=== PATIENT | female | born 1935 | race Caucasian/White ===

== ENCOUNTER 2016-11-22 16:53 | Inpatient (IN) | payer OTHER ==
[~2016-11-22] VITALS: Ht 149.9 cm; Wt 63.5 kg
[~2016-11-22 16:53] MED LIST: ALDACTONE25 MG PO; APR10 PO; ASPIRIN EC325 M1 PO; ATENOLOL50 MG PO; ATIVAN0.5 M1 PO; ENALAPRIL MALEA20 MG PO; LASIX20 MG PO; LYRICA100 M1 PO; METFORMIN500 M1 PO; NEURONTIN100 MG PO; NEXIUM40 MG PO; NIFEDIAC CC90 MG PO; ZESTRIL20 MG PO
[2016-11-22 17:44] LABS: BASOPHIL % 0.4 % (0-2); PLATELET COUNT 334 x10^3mcL (130-400); RED CELL DISTRIBUTION WIDTH 15.4 % (11.5-14.5)
[2016-11-22 17:53] LABS: CALCIUM 8.6 mg/dL (8.5-10.1); CARBON DIOXIDE 26.5 mmol/L (21-32); CHLORIDE SERUM 104 mmol/L (98-107); CREATININE SERUM 1.1 mg/dL (0.6-1.0); GLUCOSE SERUM 234 mg/dL (74-106); POTASSIUM SERUM 4.8 mmol/L (3.5-5.1); SODIUM SERUM 140 mmol/L (136-145)
[2016-11-22 17:58] LABS: ALBUMIN 3.4 g/dL (3.4-5.0); ALKALINE PHOSPHATASE 70 U/L (46-116); ALT/SGPT 26 U/L (14-59); AST/SGOT 23 U/L (15-37); BILIRUBIN TOTAL 0.42 mg/dL (0.20-1.00); TOTAL PROTEIN, SERUM 6.6 g/dL (6.4-8.2)
[2016-11-22 22:08] LABS: CHOLESTEROL/HDL RATIO 3.1
[2016-11-22 22:12] VITALS: BP 174/71
[2016-11-22 22:17] LABS: FREE T4 1.34 ng/dL (0.76-1.46); FREE THYROXINE INDEX 2.8 ug/dL (1.4-4.5); T3 TOTAL 0.97 ng/mL; T4(THYROXINE) 8.7 ug/dL (4.7-13.3)
[2016-11-22 22:39] VITALS: BP 155/68
[2016-11-23] VITALS (8 sets, daily range): BP systolic 105–167; BP diastolic 45–72; Ht 149.9 cm; Wt 63.5 kg
[2016-11-23 02:43] LABS: UA SPECIFIC GRAVITY <=1.005 (1.005-1.035); microscopic required? YES; urine erythrocyte NEGATIVE (NEGATIVE)
[2016-11-23 06:11] LABS: BASOPHIL % 0.3 % (0-2); PLATELET COUNT 329 x10^3mcL (130-400)
[2016-11-23 06:29] LABS: CALCIUM 8.9 mg/dL (8.5-10.1); CARBON DIOXIDE 30.4 mmol/L (21-32); CHLORIDE SERUM 100 mmol/L (98-107); CREATININE SERUM 1.1 mg/dL (0.6-1.0); GLUCOSE SERUM 115 mg/dL (74-106); MAGNESIUM 1.5 mg/dL (1.8-2.4); PHOSPHOROUS 3.9 mg/dL (2.5-4.9); POTASSIUM SERUM 4.1 mmol/L (3.5-5.1); SODIUM SERUM 140 mmol/L (136-145)
[2016-11-23 06:38] LABS: RED CELL DISTRIBUTION WIDTH 14.6 % (11.5-14.5)
[2016-11-24 06:01] LABS: BASOPHIL % 0.6 % (0-2); PLATELET COUNT 283 x10^3mcL (130-400)
[2016-11-24 06:08] VITALS: BP 141/57
[2016-11-24 06:25] LABS: ALBUMIN 3.4 g/dL (3.4-5.0); CALCIUM 9.1 mg/dL (8.5-10.1); CARBON DIOXIDE 29.5 mmol/L (21-32); CHLORIDE SERUM 100 mmol/L (98-107); CREATININE SERUM 1.2 mg/dL (0.6-1.0); GLUCOSE SERUM 128 mg/dL (74-106); MAGNESIUM 2.2 mg/dL (1.8-2.4); POTASSIUM SERUM 4.1 mmol/L (3.5-5.1); SODIUM SERUM 138 mmol/L (136-145)
[2016-11-24 06:32] LABS: RED CELL DISTRIBUTION WIDTH 14.7 % (11.5-14.5)
[2016-11-24 09:05] VITALS: BP 127/55
[2016-11-24 15:02] VITALS: BP 116/50
[2016-11-24] MEDS ORDERED: LEVAQUIN750 MG PO (15:17)
[2016-11-24] MEDS ORDERED: CLINDAMYCIN HC300 MG PO (15:18)
[2016-11-24] MEDS ORDERED: LAC PO (15:18)
[2016-11-24 15:24] VITALS: BP 116/50
== END 2016-11-24 15:55 | disposition home or self-care (01) | DRG 871 ==
LOC: ED 16:53 → MU 21:22 → DU 21:22 → MU 11-24 06:45
PROVIDERS: Emergency Medicine; ADMIT Family Medicine
DX: A41.9 Sepsis, unspecified organism (principal); J69.0 Pneumonitis due to inhalation of food and vomit; I50.41 Acute combined systolic (congestive) and diastolic (congestive) heart failure; N17.0 Acute kidney failure with tubular necrosis; J96.01 Acute respiratory failure with hypoxia; E87.3 Alkalosis; E11.51 Type 2 diabetes mellitus with diabetic peripheral angiopathy without gangrene; E11.65 Type 2 diabetes mellitus with hyperglycemia; Z79.84 Long term (current) use of oral hypoglycemic drugs; I11.0 Hypertensive heart disease with heart failure; I16.0 Hypertensive urgency; D64.9 Anemia, unspecified; E11.40 Type 2 diabetes mellitus with diabetic neuropathy, unspecified; Z79.4 Long term (current) use of insulin; E83.42 Hypomagnesemia; K21.9 Gastro-esophageal reflux disease without esophagitis
CPT/HCPCS: 36600; 82962; 83880; 84439; J1644; J1940; J1956; J3475; J3490; J7030; J7613; J7620; J7644; Q0092; Q9967

== ENCOUNTER 2016-12-31 04:59 | Inpatient (IN) | payer OTHER ==
[~2016-12-31] VITALS: Ht 160 cm; Wt 68.6 kg
[~2016-12-31 04:59] MED LIST changes: +CLINDAMYCIN HC300 MG PO; +LAC PO; +LEVAQUIN750 MG PO
[2016-12-31 05:53] LABS: RED CELL DISTRIBUTION WIDTH 14.3 % (11.5-14.5)
[2016-12-31 05:56] LABS: PLATELET COUNT 587 x10^3mcL (130-400)
[2016-12-31 06:09] LABS: ALBUMIN 2.7 g/dL (3.4-5.0); ALKALINE PHOSPHATASE 126 U/L (46-116); ALT/SGPT 21 U/L (14-59); AST/SGOT 22 U/L (15-37); BILIRUBIN TOTAL 0.4 mg/dL (0.20-1.00); CALCIUM 8.3 mg/dL (8.5-10.1); CREATININE SERUM 1.6 mg/dL (0.6-1.0); GLUCOSE SERUM 275 mg/dL (74-106); TOTAL PROTEIN, SERUM 6.6 g/dL (6.4-8.2)
[2016-12-31 06:18] LABS: BAND NEUTROPHIL 4 % (0-10); METAMYELOCTE 1 % (0-2); MONOCYTE 3 % (0-7); SEGMENTED NEUTROPHILS 86 % (37-75)
[2016-12-31 06:19] LABS: rbc morphology (normal/abnorm) ABNORMAL (NORMAL); tear drop cell (dacryocyte) 1+
[2016-12-31 06:20] LABS: PLATELET MORPHOLOGY PLATELETS INCREASED
[2016-12-31 06:25] LABS: CHLORIDE SERUM 101 mmol/L (98-107); POTASSIUM SERUM 4.6 mmol/L (3.5-5.1); SODIUM SERUM 139 mmol/L (136-145)
[2016-12-31 09:20] VITALS: BP 156/71
[2016-12-31 11:41] LABS: MAGNESIUM 1.2 mg/dL (1.8-2.4); PHOSPHOROUS 4.8 mg/dL (2.5-4.9)
[2016-12-31 11:44] LABS: CHOLESTEROL/HDL RATIO 3.5
[2016-12-31 11:51] LABS: FREE T4 1.25 ng/dL (0.76-1.46); FREE THYROXINE INDEX 2.8 ug/dL (1.4-4.5)
[2016-12-31 11:53] LABS: T3 TOTAL 0.65 ng/mL
[2016-12-31 13:40] VITALS: BP 181/77
[2016-12-31 15:41] LABS: microscopic required? YES; urine erythrocyte NEGATIVE (NEGATIVE)
[2016-12-31 18:00] VITALS: BP 127/47
[2016-12-31 21:56] VITALS: BP 150/65
[2017-01-01 05:25] VITALS: BP 145/60
[2017-01-01 07:35] LABS: CALCIUM 8.7 mg/dL (8.5-10.1); CARBON DIOXIDE 29.1 mmol/L (21-32); CHLORIDE SERUM 102 mmol/L (98-107); CREATININE SERUM 1.3 mg/dL (0.6-1.0); GLUCOSE SERUM 153 mg/dL (74-106); MAGNESIUM 1.9 mg/dL (1.8-2.4); PHOSPHOROUS 3.8 mg/dL (2.5-4.9); POTASSIUM SERUM 4.4 mmol/L (3.5-5.1); SODIUM SERUM 140 mmol/L (136-145)
[2017-01-01 07:41] LABS: RED CELL DISTRIBUTION WIDTH 13.8 % (11.5-14.5)
[2017-01-01 07:43] LABS: PLATELET COUNT 468 x10^3mcL (130-400)
[2017-01-01 09:24] LABS: BAND NEUTROPHIL 4 % (0-10); BASOPHIL 0 % (0-2); MONOCYTE 5 % (0-7); SEGMENTED NEUTROPHILS 83 % (37-75)
[2017-01-01 09:26] LABS: rbc morphology (normal/abnorm) ABNORMAL (NORMAL)
[2017-01-01 09:29] LABS: ovalocyte/elliptocyte 1+; tear drop cell (dacryocyte) 1+
[2017-01-01 10:27] VITALS: BP 143/62
[2017-01-01 14:23] VITALS: BP 118/50
[2017-01-01 18:00] VITALS: BP 127/78
[2017-01-01 21:48] VITALS: BP 129/47
[2017-01-02 05:37] VITALS: BP 122/56
[2017-01-02 08:32] VITALS: BP 114/41; BP 117/45
[2017-01-02 09:24] LABS: RED CELL DISTRIBUTION WIDTH 13.9 % (11.5-14.5)
[2017-01-02 09:36] LABS: CALCIUM 8.8 mg/dL (8.5-10.1); CARBON DIOXIDE 32.2 mmol/L (21-32); CHLORIDE SERUM 104 mmol/L (98-107); CREATININE SERUM 1.4 mg/dL (0.6-1.0); GLUCOSE SERUM 150 mg/dL (74-106); POTASSIUM SERUM 4.1 mmol/L (3.5-5.1); SODIUM SERUM 141 mmol/L (136-145)
[2017-01-02 09:50] LABS: PLATELET COUNT 459 x10^3mcL (130-400)
[2017-01-02 12:20] LABS: BAND NEUTROPHIL 5 % (0-10); BASOPHIL 0 % (0-2); MONOCYTE 2 % (0-7); SEGMENTED NEUTROPHILS 85 % (37-75)
[2017-01-02 12:21] LABS: ovalocyte/elliptocyte 1+; rbc morphology (normal/abnorm) ABNORMAL (NORMAL)
[2017-01-02 12:22] LABS: tear drop cell (dacryocyte) 1+
[2017-01-02] MEDS ORDERED: AUG500 PO (12:55)
[2017-01-02] MEDS ORDERED: GLU5 PO (12:57)
[2017-01-02] MEDS ORDERED: LAC PO (12:57)
[2017-01-02] MEDS ORDERED: PHARMASSURE VI500 MG PO (12:58)
[2017-01-02] MEDS ORDERED: FERROUS SULFAT325 M2 PO (12:58)
[2017-01-02] MEDS ORDERED: THERA TABS1 TAB PO (12:59)
[2017-01-02 13:22] VITALS: BP 116/42
[2017-01-02 14:29] VITALS: BP 116/42
[2017-01-02 14:34] VITALS: Ht 160 cm; Wt 68.6 kg
[2017-01-02 16:26] VITALS: BP 116/44
== END 2017-01-02 19:12 | disposition home health service (06) | DRG 177 ==
LOC: ED 04:59 → DU 06:44
PROVIDERS: Emergency Medicine; Family Medicine; ADMIT Family Medicine
DX: J69.0 Pneumonitis due to inhalation of food and vomit (principal); J96.00 Acute respiratory failure, unspecified whether with hypoxia or hypercapnia; I50.43 Acute on chronic combined systolic (congestive) and diastolic (congestive) heart failure; N17.0 Acute kidney failure with tubular necrosis; E43 Unspecified severe protein-calorie malnutrition; I67.4 Hypertensive encephalopathy; N39.0 Urinary tract infection, site not specified; I11.0 Hypertensive heart disease with heart failure; I35.0 Nonrheumatic aortic (valve) stenosis; K21.9 Gastro-esophageal reflux disease without esophagitis; D64.9 Anemia, unspecified; D47.3 Essential (hemorrhagic) thrombocythemia; Z68.26 Body mass index [BMI] 26.0-26.9, adult; Z79.84 Long term (current) use of oral hypoglycemic drugs
CPT/HCPCS: 82962; 83880; 84439; 94150; 97110-GP; 97116-GP; 97530-GP; C9113; J0696; J1940; J1956; J2543; J3475; J7030; J7613; J7620; J7644; Q0092

== ENCOUNTER 2017-06-18 18:45 | Inpatient (IN) | payer OTHER ==
[~2017-06-18] VITALS: Ht 160 cm; Wt 70.7 kg
[~2017-06-18 18:45] MED LIST changes: +AUG500 PO; +FERROUS SULFAT325 M2 PO; +GLU5 PO; +PHARMASSURE VI500 MG PO; +THERA TABS1 TAB PO
[2017-06-18 20:57] LABS: PLATELET COUNT 279 x10^3mcL (130-400); RED CELL DISTRIBUTION WIDTH 14.3 % (11.5-14.5)
[2017-06-18 21:14] LABS: ALKALINE PHOSPHATASE 224 U/L (46-116); ALT/SGPT 16 U/L (14-59); AST/SGOT 26 U/L (15-37); BILIRUBIN TOTAL 0.5 mg/dL (0.20-1.00); CALCIUM 7.5 mg/dL (8.5-10.1); CARBON DIOXIDE 29.3 mmol/L (21-32); CHLORIDE SERUM 100 mmol/L (98-107); CREATININE SERUM 2.9 mg/dL (0.6-1.0); GLUCOSE SERUM 88 mg/dL (74-106); SODIUM SERUM 142 mmol/L (136-145)
[2017-06-18 21:16] LABS: ALBUMIN 2.1 g/dL (3.4-5.0); TOTAL PROTEIN, SERUM 5.7 g/dL (6.4-8.2)
[2017-06-18 21:18] LABS: CK-MB 1.5 ng/mL (0-3.6)
[2017-06-18 21:20] LABS: UA SPECIFIC GRAVITY 1.015 (1.005-1.035); urine erythrocyte NEGATIVE (NEGATIVE)
[2017-06-18 21:21] LABS: microscopic required? YES
[2017-06-18 21:31] LABS: BAND NEUTROPHIL 27 % (0-10); BASOPHIL 0 % (0-2); METAMYELOCTE 2 % (0-2); MONOCYTE 5 % (0-7); MYELOCYTE 1 % (0-2); SEGMENTED NEUTROPHILS 60 % (37-75)
[2017-06-18 21:33] LABS: rbc morphology (normal/abnorm) NORMAL (NORMAL)
[2017-06-18 21:36] LABS: PLATELET MORPHOLOGY LARGE PLATELET SEEN
[2017-06-18 22:57] LABS: PHOSPHOROUS 3.7 mg/dL (2.5-4.9)
[2017-06-18 23:00] LABS: CHOLESTEROL/HDL RATIO 4.8
[2017-06-18 23:02] LABS: T3 TOTAL 0.44 ng/mL
[2017-06-18 23:03] LABS: FREE T4 1.34 ng/dL (0.76-1.46); T4(THYROXINE) 5.5 ug/dL (4.7-13.3)
[2017-06-18 23:12] LABS: MAGNESIUM 0.9 mg/dL (1.8-2.4)
[2017-06-18 23:43] VITALS: BP 83/34
[2017-06-19] VITALS (8 sets, daily range): BP systolic 72–97; BP diastolic 23–56; Ht 160 cm; Wt 70.7 kg
[2017-06-19 04:31] LABS: PLATELET COUNT 225 x10^3mcL (130-400); RED CELL DISTRIBUTION WIDTH 14.4 % (11.5-14.5)
[2017-06-19 04:50] LABS: CALCIUM 7.1 mg/dL (8.5-10.1); CARBON DIOXIDE 23.3 mmol/L (21-32); CHLORIDE SERUM 104 mmol/L (98-107); CREATININE SERUM 2.9 mg/dL (0.6-1.0); GLUCOSE SERUM 91 mg/dL (74-106); MAGNESIUM 1.4 mg/dL (1.8-2.4); PHOSPHOROUS 4.6 mg/dL (2.5-4.9); POTASSIUM SERUM 4.1 mmol/L (3.5-5.1); SODIUM SERUM 141 mmol/L (136-145)
[2017-06-19 05:05] LABS: BAND NEUTROPHIL 29 % (0-10); METAMYELOCTE 18 % (0-2); MONOCYTE 3 % (0-7); MYELOCYTE 2 % (0-2); SEGMENTED NEUTROPHILS 42 % (37-75)
[2017-06-19 05:08] LABS: PLATELET MORPHOLOGY LARGE PLATELET SEEN; ovalocyte/elliptocyte 1+; rbc morphology (normal/abnorm) ABNORMAL (NORMAL)
[2017-06-19 09:06] LABS: UA SPECIFIC GRAVITY 1.015 (1.005-1.035); microscopic required? YES; urine erythrocyte TRACE (NEGATIVE)
== END 2017-06-19 21:55 | disposition expired | DRG 871 ==
LOC: ED 18:45 → IC 21:27 → DU 21:27 → IC 23:19 → DU 06-19 02:45 → IC 06-19 06:02
PROVIDERS: Emergency Medicine; ADMIT Family Medicine
PROC: 05HM33Z Insertion of Infusion Device into Right Internal Jugular Vein, Percutaneous Approach (ICD-10-PCS; principal; 2017-06-19)
PROC: B543ZZA Ultrasonography of Right Jugular Veins, Guidance (ICD-10-PCS; 2017-06-19)
DX: A41.9 Sepsis, unspecified organism (principal); N17.0 Acute kidney failure with tubular necrosis; E43 Unspecified severe protein-calorie malnutrition; I50.43 Acute on chronic combined systolic (congestive) and diastolic (congestive) heart failure; R65.21 Severe sepsis with septic shock; A04.72 Enterocolitis due to Clostridium difficile, not specified as recurrent; I13.0 Hypertensive heart and chronic kidney disease with heart failure and stage 1 through stage 4 chronic kidney disease, or unspecified chronic kidney disease; N39.0 Urinary tract infection, site not specified; E87.6 Hypokalemia; N18.3 Chronic kidney disease, stage 3 (moderate); I35.0 Nonrheumatic aortic (valve) stenosis; E78.5 Hyperlipidemia, unspecified; E83.42 Hypomagnesemia; M62.50 Muscle wasting and atrophy, not elsewhere classified, unspecified site; R80.9 Proteinuria, unspecified; Z79.82 Long term (current) use of aspirin; Z68.27 Body mass index [BMI] 27.0-27.9, adult; Z79.84 Long term (current) use of oral hypoglycemic drugs; I48.91 Unspecified atrial fibrillation
CPT/HCPCS: 36556; 82962; 83880; 84439; 87046; 87046-59; J1265; J1642; J1720; J1956; J2060; J2270; J2405; J2543; J3475; J3480; J3490; J7030; J7040